=== PATIENT | male | born 1950 | race Caucasian/White ===

== ENCOUNTER 2018-08-26 11:54 | Emergency (ER) | payer OTHER ==
[~2018-08-26] VITALS: Ht 167.6 cm; Wt 90.7 kg
[2018-08-26] MEDS ORDERED: NORVASC5 MG PO (12:16)
[2018-08-26] MEDS ORDERED: PROZAC10 MG PO (12:16)
[2018-08-26] MEDS ORDERED: LIPITOR10 MG PO (12:16)
[2018-08-26] MEDS ORDERED: KEFLEX500 M1 PO (14:18)
[2018-08-26] MEDS ORDERED: NORCO 5-325 TA1 EAC1 PO (14:18)
[2018-08-26 14:24] VITALS: BP 126/76
== END 2018-08-26 14:27 | disposition home or self-care (01) ==
LOC: M.ERS 11:54
DX: S68.115A Complete traumatic metacarpophalangeal amputation of left ring finger, initial encounter (principal); I10 Essential (primary) hypertension; E78.5 Hyperlipidemia, unspecified; F32.9 Major depressive disorder, single episode, unspecified; Z88.0 Allergy status to penicillin; Z88.1 Allergy status to other antibiotic agents; W22.8XXA Striking against or struck by other objects, initial encounter; Y93.89 Activity, other specified; Y92.89 Other specified places as the place of occurrence of the external cause; Y99.8 Other external cause status